=== PATIENT | female | born 1955 | race Caucasian/White ===

== ENCOUNTER 2021-04-30 22:29 | Emergency (ER) | payer OTHER ==
[~2021-04-30] VITALS: Ht 154.9 cm; Wt 83.9 kg
[2021-04-30 22:44] VITALS: BP 130/78
--- NOTE | 2021-04-30 22:50 | NUR ---
PT BIBA FROM [facility] FOR DISLODGED GTUBE. PT IS NON VERBAL NON AMB.
--- NOTE | 2021-05-01 00:05 | NUR ---
GTUBE REPLACED. CALLED FOR TRANSPORT
--- NOTE | 2021-05-01 02:30 | NUR ---
PT AWAKE IN BED. NO VISIBLE DISTRESS NOTED. SIDE RAILS UP AND BED IN LOWEST POSITION.
--- NOTE | 2021-05-01 05:43 | NUR ---
[facility] AT BEDSIDE FOR TRANSPORT. CALLED [facility] TO ADV PT IS COMING BACK.
[2021-05-01 05:46] VITALS: BP 130/78
--- NOTE | 2021-05-01 05:46 | NUR ---
Patient discharged with v/s stable. Written and verbal after care instructions given and explained. Patient verbalized understanding. Ambulance Transport with to intermediate. All questions addressed prior to discharge. Advised to follow up with PMD.
== END 2021-05-01 05:45 ==
LOC: EDBD 22:29 → MED 22:29
DX: K94.23 Gastrostomy malfunction (principal); F03.90 Unspecified dementia, unspecified severity, without behavioral disturbance, psychotic disturbance, mood disturbance, and anxiety
CPT/HCPCS: 43246; 74240; 99284; Q0092

== ENCOUNTER 2021-06-07 10:17 | Emergency (ER) | payer OTHER ==
[~2021-06-07] VITALS: Ht 167.6 cm; Wt 83.9 kg
[2021-06-07 10:29] VITALS: BP 126/76
--- NOTE | 2021-06-07 10:40 | NUR ---
PER FACILITY PATIENT HAS HAD G-TUBE SINCE AUGUST 2020 AND HAS 20-[address] IN PLACE
--- NOTE | 2021-06-07 10:56 | NUR ---
NEW G-TUBE SUPPLIES AT PATIENT BEDSIDE FOR
--- NOTE | 2021-06-07 10:56 | NUR ---
66 Y/O FEMALE BIBA FOR SELF REMOVAL OF GT. PT ARRIVED TO ER WITH NO GT IN PLACE. PLACED 16FR MALONEY PER MD ORDER AT THIS TIME. PER FACILITY PATIENT HAS HAD G-TUBE IN PLACE SINCE AUGUST 2020 AND NORMALLY HAS A [address] PMHX: HLD, DEMENTIA, SEPSIS, EPILEPSY, DM, AKF MED: SEE HOME LIST ALLERGIES: BARLEY, OAK, WHEAT
--- NOTE | 2021-06-07 11:09 | NUR ---
DR. JAY AT PATIENT BEDSIDE INSERTING NEW G-TUBE
--- NOTE | 2021-06-07 12:05 | NUR ---
XRAY AT PATIENT BEDSIDE
--- NOTE | 2021-06-07 12:17 | NUR ---
Patient appears to be resting comfortably in bed. Vital Signs within normal limits. Respirations even and unlabored.
--- NOTE | 2021-06-07 14:43 | NUR ---
Patient appears to be resting comfortably in bed. Vital Signs within normal limits. Respirations even and unlabored.
--- NOTE | 2021-06-07 17:06 | NUR ---
Patient appears to be resting comfortably in bed. Vital Signs within normal limits. Respirations even and unlabored. PT REPOSITIONED IN BED
--- NOTE | 2021-06-07 17:12 | NUR ---
CALLED [facility] AND SPOKE WITH ABIMAEL GEORGE IN REGARDS TO PATIENT TRANSFER BACK. PROVIDED REPORT AND INFORMED TRANSPORTAION FOR PATIENT BACK TO FACILITY IS BETWEEN [id number]
--- NOTE | 2021-06-07 19:16 | NUR ---
Pt report given to ABIMAEL TRUJILLO. Transfer of care at this time.
--- NOTE | 2021-06-07 19:42 | NUR ---
TRANSPORT AT BEDSIDE
--- NOTE | 2021-06-07 20:01 | NUR ---
hand-off to [facility] staff. Vs stable on transport. Newly place gtube secured.
[2021-06-07 20:02] VITALS: BP 115/74
== END 2021-06-07 20:01 ==
LOC: MED 10:17
DX: K94.23 Gastrostomy malfunction (principal); E11.9 Type 2 diabetes mellitus without complications; F03.90 Unspecified dementia, unspecified severity, without behavioral disturbance, psychotic disturbance, mood disturbance, and anxiety; E78.5 Hyperlipidemia, unspecified; G40.909 Epilepsy, unspecified, not intractable, without status epilepticus; Z98.890 Other specified postprocedural states; Z91.018 Allergy to other foods
CPT/HCPCS: 43762; 99285; Q0092